=== PATIENT | female | born 1985 | race Caucasian/White ===

== ENCOUNTER → 2017-01-14 | Outpatient (CLI) | payer OTHER | LOC: FIMAGING 09:00 | PROVIDERS: ATTEND Advanced Practice Midwife | DX: Z13.29 Encounter for screening for other suspected endocrine disorder (principal); N63 Unspecified lump in breast; Z87.42 Personal history of other diseases of the female genital tract ==

== ENCOUNTER → 2017-06-06 | Outpatient (CLI) | payer MEDICAID | LOC: FIMAGING 09:56 | PROVIDERS: ATTEND Advanced Practice Midwife | DX: Z34.92 Encounter for supervision of normal pregnancy, unspecified, second trimester (principal); Z3A.19 19 weeks gestation of pregnancy ==

== ENCOUNTER 2017-07-25 19:25 | Observation (INO) | payer OTHER, MEDICAID ==
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
[2017-07-25 20:20] VITALS: RESP 18; TEMP 97.9; O2SAT 97
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
[2017-07-25 21:34] LABS: % IMMATURE GRANULYOCYTES 0.6 % (0.0-1.1); ABSOLUTE IMMATURE GRANULOCYTES 0.11 10^3/uL (0.00-0.10); ADD DIFF? NO; ADD MORPH? NO; ADD SCAN? NO; ATYPICAL LYMPHOCYTE FLAG 0 (0-99); FRAGMENT RBC FLAG 0 (0-99); HEMATOCRIT 38.4 % (38.0-47.0); HEMOGLOBIN 13.3 g/dL (12.6-16.3); LEFT SHIFT FLG 0 (0-99); LIPEMIA HEMOLYSIS FLAG 90 (0-99); MEAN CELL HEMOGLOBIN 31.9 pg (27.9-34.1); MEAN CELL HEMOGLOBIN CONCENTR. 34.6 g/dL (32.4-36.7); MEAN CELL VOLUME 92.1 fL (81.5-99.8); MEAN PLATELET VOLUME 9.7 fL (8.7-11.7); PLATELET CLUMPS FLAG 0 (0-99); PLATELET COUNT 289 10^3/uL (150-400); RED BLOOD CELL COUNT 4.17 10^6/uL (4.18-5.33)
[2017-07-25] MEDS ORDERED: TERBUTALINE SULFATE 1 MG/ML VIAL SC ONE (21:53)
[2017-07-25 22:07] VITALS: BP 117/70; PULSE 96
[2017-07-25 22:48] LABS: FETAL STAIN LOT NUMBER 93212; FETAL STAIN NEGATIVE NEGATIVE
[2017-07-25 23:07] LABS: FETAL STAIN POSITIVE POSITIVE
[2017-07-26] MEDS ORDERED: ACETAMINOPHEN 500 MG TAB PO ONE (09:51)
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
== END 2017-07-26 18:45 | disposition home or self-care (01) ==
LOC: EDUNIT# → FLD 20:00
PROVIDERS: ADMIT Advanced Practice Midwife; ATTEND Advanced Practice Midwife
DX: T14.90XA Injury, unspecified, initial encounter (principal); Z3A.01 Less than 8 weeks gestation of pregnancy; V89.2XXA Person injured in unspecified motor-vehicle accident, traffic, initial encounter
CPT/HCPCS: 96372; G0378; J3105